=== PATIENT | female | born 1985 | race Hispanic/Latino ===

== ENCOUNTER 2023-03-06 00:59 | Emergency (ER) | payer OTHER ==
--- NOTE | 2023-03-06 02:09 | ER ---
Nurse's Notes [facility] Name: Delmy Bass Age: 37 yrs Sex: Female : 1985 Arrival Date: 03/06/2023 Time: 00:59 Bed 7 Private MD: Diagnosis: Pain in left leg Presentation: 03/06 01:08 Chief complaint: Patient states: My left leg has been hurting since this morning. When kd3 i got up this morning i started getting sharp pains in my calf and some swelling. I have had a DVT before. As far as i know i did not injure it. Coronavirus screen: Vaccine status: Patient reports being unvaccinated. Ebola Screen: No symptoms or risks identified at this time. Initial Sepsis Screen: Does the patient meet any 2 criteria? No. Patient's initial sepsis screen is negative. Does the patient have a suspected source of infection? No. Patient's initial sepsis screen is negative. Risk Assessment: Do you want to hurt yourself or someone else? Patient reports no desire to harm self or others. Onset of symptoms was March 06, 2023. 01:08 Method Of Arrival: Ambulatory kd3 01:08 Acuity: TOO 3 kd3 Triage Assessment: 01:10 General: Appears uncomfortable, Behavior is calm, cooperative. Pain: Complains of pain kd3 in left leg. Neuro: Level of Consciousness is awake, alert, obeys commands, Oriented to person, place, time, situation. 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 - Social history:: Smoking status: Patient denies any tobacco usage or history of. Screenin:23 [facility] ED Fall Risk Assessment (Adult) History of falling in the last 3 months, bp including since admission No falls in past 3 months (0 pts). Abuse screen: Denies threats or abuse. Denies injuries from another. Nutritional screening: No deficits noted. Tuberculosis screening: No symptoms or risk factors identified. Assessment: :23 General: SEE TRIAGE NOTE. bp Vital Signs: 01:08 Weight 124.74 kg; Height 5 ft. 8 in. ; kd3 01:16 BP 181 / 85; Pulse 79; Resp 16; Temp 98.1; Pulse Ox 100% ; bp 02:12 BP 162 / 81; Pulse 72; Resp 17; Temp 98; Pulse Ox 100% on R/A; rv 01:08 Body Mass Index 41.81 (124.74 kg, 172.72 cm) kd3 Fan Coma Score: 02:12 Eye Response: spontaneous(4). Motor Response: obeys commands(6). Verbal Response: rv oriented(5). Total: 15. ED Course: 01:02 Patient arrived in ED. mr 01:02 Ruthie Spangler FNP-C is PHCP. kb 01:02 Bob Mehta MD is Attending Physician. kb 01:10 Triage completed. kd3 01:10 Arm band placed on right wrist. kd3 01:12 Jimbo Campbell, RN is Primary Nurse. bp 01:23 Patient has correct armband on for positive identification. Bed in low position. Call bp light in reach. Side rails up X2. 01:34 US Extremity Venous Unilateral Ltd In Process Unspecified. EDMS 01:48 No provider procedures requiring assistance completed. rv 02:13 Provided Education on: dvt. rv 02:14 Patient did not have IV access during this emergency room visit. rv Administered Medications: No medications were administered Medication: 01:23 VIS not applicable for this client. bp Outcome: 02:08 Discharge ordered by . kb 02:14 Discharged to home ambulatory, rv 02:14 Condition: good 02:14 Discharge instructions given to patient, Instructed on discharge instructions, follow up and referral plans. medication usage, Demonstrated understanding of instructions, follow-up care, medications, Prescriptions given X 2, 02:32 Patient left the ED. bp Signatures: Dispatcher [employer] EDMS Ruthie Spangler FNP-C COMPUTER TEACHER-Ckb Nidia De La Paz, Reg Reg mr Jimbo Campbell, RN RN bp Monty Perdue, JONAH RN rv Kimberly Calixto RN RN kd3 Corrections: (The following items were deleted from the chart) 01:11 01:08 Chief complaint: Patient states: My left leg has been hurting since this morning. kd3 When i got up this morning i started getting sharp pains in my calf and some swelling. I have had a DVT before. kd3 02:15 02:14 Discharge instructions given to patient, Instructed on discharge instructions, rv follow up and referral plans. Demonstrated understanding of instructions, follow-up care, rv
--- NOTE | 2023-03-06 02:09 | EDPHYS ---
Physician Documentation [facility] Name: Delmy Bass Age: 37 yrs Sex: Female : 1985 Arrival Date: 03/06/2023 Time: 00:59 Bed 7 Private MD: ED Physician Bob Mehta HPI: 03/06 01:33 This 37 yrs old Female presents to ER via Ambulatory with complaints of Leg kb Pain. 01:33 The patient presents with pain, that is acute, swelling. The complaints affect the left kb leg. Context: The problem was sustained at home, resulted from an unknown cause, the patient can fully bear weight, the patient is not able to ambulate, Problem is a result from a previous injury: No. Onset: The symptoms/episode began/occurred this morning. Modifying factors: The symptoms are alleviated by nothing. the symptoms are aggravated by nothing. Associated signs and symptoms: Pertinent positives: swelling, Pertinent negatives calf tenderness, fever, nausea, numbness, rash, tingling, vomiting, warmth, weakness. Treatment prior to arrival includes: no previous treatment. Severity of symptoms: At their worst the symptoms were moderate, in the emergency department the symptoms are unchanged. The patient has not experienced similar symptoms in the past. The patient has not recently seen a physician. 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 - Social history:: Smoking status: Patient denies any tobacco usage or history of. ROS: 01:32 Constitutional: Negative for fever, chills, and weight loss, kb 01:32 MS/extremity: Positive for tightness in thigh and intermittent sharp pain that shoots up leg. , 01:32 All other systems are negative, Exam: 01:32 Constitutional: This is a well developed, well nourished patient who is awake, alert, kb and in no acute distress. Head/Face: Normocephalic, atraumatic. ENT: Moist Mucous membranes Cardiovascular: Regular rate Respiratory: Respirations even and unlabored. No increased work of breathing. Talking in full sentences Skin: Warm, dry with normal turgor. Normal color. Neuro: Awake and alert, GCS 15, oriented to person, place, time, and situation. Moves all extremities. Normal gait. 01:32 Musculoskeletal/extremity: Extremities: grossly normal except: noted in the left leg: pain, swelling, ROM: intact in all extremities, Circulation is intact in all extremities. Sensation intact. Weight bearing: able to fully bear weight, Vital Signs: 01:08 Weight 124.74 kg; Height 5 ft. 8 in. ; kd3 01:16 BP 181 / 85; Pulse 79; Resp 16; Temp 98.1; Pulse Ox 100% ; bp 02:12 BP 162 / 81; Pulse 72; Resp 17; Temp 98; Pulse Ox 100% on R/A; rv 01:08 Body Mass Index 41.81 (124.74 kg, 172.72 cm) kd3 Turner Coma Score: 02:12 Eye Response: spontaneous(4). Motor Response: obeys commands(6). Verbal Response: rv oriented(5). Total: 15. MDM: 01:03 Patient medically screened. kb 01:32 Differential diagnosis: contusion, tendonitis, dvt. Data reviewed: vital signs, nurses kb notes. Counseling: I had a detailed discussion with the patient and/or guardian regarding the historical points, exam findings, and any diagnostic results supporting the discharge/admit diagnosis, radiology results, the need for outpatient follow up, a family practitioner, to return to the emergency department if symptoms worsen or persist or if there are any questions or concerns that arise at home. 03/06 01:04 Order name: US Extremity Venous Unilateral Ltd kb Administered Medications: No medications were administered Disposition Summary: 03/06/23 02:08 Discharge Ordered Notes: Location: Home kb Condition: Stable kb Diagnosis - Pain in left leg kb Followup: kb - With: Emergency Department - When: As needed - Reason: Worsening of condition Followup: kb - With: Private Physician - When: 2 - 3 days - Reason: Recheck today's complaints, Continuance of care, Re-evaluation by your physician Discharge Instructions: - Discharge Summary Sheet kb - Musculoskeletal Pain kb Forms: - Medication Reconciliation Form kb - Thank You Letter kb - Antibiotic Education kb - Prescription Opioid Use kb - Patient Portal Instructions kb - Leadership Thank You Letter kb Prescriptions: - Ibuprofen 800 mg Oral Tablet - take 1 tablet ORAL route every 8 hours As needed take with food; 30 tablet; kb Refills: 0, Product Selection Permitted - orphenadrine citrate 100 mg Oral Tablet Sustained Release - take 1 tablet ORAL route 2 times per day As needed; 20 tablet; Refills: 0, kb Product Selection Permitted Signatures: Dispatcher [employer] Ruthie Tang, Kimberly Benson, RN RN kd3
[2023-03-06 03:01] VITALS: O2SAT 100
[2023-03-06 03:03] VITALS: BP 162/81; TEMP 98
--- OUTSIDE RECORDS SUMMARY | 2023-03-06 07:24 | XMS REPORT | Continuity of Care Document ---
:[address] [facility] t Address [address] [facility] [address] [place] [id number] Care Team Providers Name Role Phone GILL WHYTE Primary Care Physician Unavailable EDDOC, GENERIC FOR EDM Attending Clinician Unavailable Alfred Burris Attending Clinician Unavailable Valentine Del Rio MD Attending Clinician Edel Genao Attending Clinician VALENTINE DEL RIO Attending Clinician Unavailable Doctor Unassigned, [place] Attending Clinician Unavailable RUSS BELTRE Attending Clinician Unavailable Aliyah Navarro Attending Clinician Unavailable LORENE SCHILLING Attending Clinician Unavailable KHUSHBU MCCOLLUM M.D. Attending Clinician Unavailable ALFRED RODGERS M.D. Attending Clinician Unavailable Gill Whyte Admitting Clinician Unavailable Payers Payer Name Policy Type Policy Number Effective Date Expiration Date S ource Problems Condition Condition Condition Status Onset Resolution Last Treating Co mments Source Name Details Category Date Date Treatment Clinician Date History of History of Problem Resolve [facility] Thyroid Thyroid d [facility] disease disease ans Acute deep Acute deep Problem Active U T vein vein Physici thrombosis thrombosis an s (DVT) of (DVT) of popliteal popliteal vein of vein of left lower left lower extremity extremity Fracture Fracture Problem Active UT of 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 ans of left of left ankle ankle No known No known Disease Unive rs active active ity of problems problems [facility] Allergies, Adverse Reactions, Alerts Allergy Allergy Status Severity Reaction(s) Onset Inactive Treating Comm ents Source Name Type Date Date Clinician No Known DA Active U 2016-06 [facility] Allergie 07-13 Clear s 00:00: [place] 00 [facility] No Known DA Active U 2016-06 [facility] Allergie 07-13 [place] s 00:00: d 00 [facility] NO KNOWN Drug Active Univers ALLERGIE Class ity of S [facility] Family History Family Member Diagnosis Comments Start Date Stop Date Source Brother Family history of deep [facility] venous thrombosis Social History Social Habit Start Date Stop Date Quantity Comments Source Sexual orientation Method [facility] Gender identity [facility] Exposure to Not sure [facility]-CoV-2 (event) [facility] Tobacco use and 2021-06-13 2021-06-13 Never used Universit y of exposure 00:00:00 00:00:00 [facility] Sex Assigned At [birth year] [facility] 00:00:00 00:00:00 Smoking Status Start Date Stop Date Source Tobacco smoking consumption [facility] unknown Never smoker [facility] Medications Ordered Filled Start Stop Current Ordering Indication Dosage Frequency Signature Comments Components Source Medication Medication Date Date Medication? Clinician (SIG) Name Name benzonatate 2020-06 Yes [id number] 200mg Take 2 Univers 100 mg 2-28 capsules ity of capsule 00:00: by mouth 2 [place] (two[place] Medical times [place] daily as needed for Cough. Xarelto 20 Xarelto 20 2016-06 Yes ALFRED Take 1 tab UT MG Oral MG Oral 1-10 LI-SKYLER po daily. P hysici Tablet Tablet 00:00: BEN MDoriDDori ans 00 Immunizations Ordered Filled Immunization Date Status Comments Sourc e Immunization Name Name FLUCELVAX QUAD PF 2019-04-[address] [facility] FLUCELVAX QUAD PF 2019-04-[address] [facility] Hospital FLUCELVAX QUAD PF 2018-02-[address] 00:00:00 Hospital FLUCELVAX QUAD PF 2018-02-[address] 00:00:00 Hospital FLUCELVAX QUAD PF Unknown Completed [facility] FLUCELVAX QUAD PF Unknown Completed [facility] Vital Signs Vital Name Observation Time Observation Value Comments Source Systolic blood 2021-06-14 00:55:00 134 mm[Hg] Univer sity [facility] Diastolic blood 2021-06-14 00:55:00 84 mm[Hg] Unive [facility] [place] Heart rate 2021-06-14 00:55:00 84 /min [facility] Body temperature 2021-06-14 00:55:00 37.11 Arcelia [facility] Respiratory rate 2021-06-14 00:55:00 18 /min [facility] Body height 2021-06-14 00:55:00 172.7 cm [facility] Body weight 2021-06-14 00:55:00 126.78 kg [facility] BMI 2021-06-14 00:55:00 42.50 kg/m2 [facility] Oxygen saturation in 2021-06-14 00:55:00 98 /min [facility] blood by [facility] Pulse oximetry Branch BP Systolic 2017-04-26 10:11:00 140 mm[Hg] [facility] BP Diastolic 2017-04-26 10:11:00 89 mm[Hg] [facility] Heart Rate 2017-04-26 10:11:00 97 /min [facility] Procedures Procedure Date / Time Performing Clinician Source Performed NO SHOW OR MISSED 2021-06-14 00:45:39 Doctor Unassigned, [facility] APPOINTMENT POLICY [facility] ACKNOWLEDGEMENT CONSENT/REFUSAL FOR 2021-06-14 00:45:06 Doctor Unassigned, [facility] DIAGNOSIS AND TREATMENT [facility] ASSIGNMENT OF BENEFITS 2021-06-14 00:44:53 Doctor Unassigned, [facility] [U] XRAY ANKLE MIN 3 S 2017-06-13 00:00:00 [facility] LEFT [id number] [U] XRAY ANKLE MIN 3 [facility] 2017-05-21 00:00:00 [facility] LEFT [id number] [LH] Antithrombin III 2017-04-26 00:00:00 [facility] Functional Assay [LH] Factor V Leiden 2017-04-26 00:00:00 [facility] [LH] Protein C Functional 2017-04-26 00:00:00 [facility] [LH] Protein S Functional 2017-04-26 00:00:00 [facility] [LH] Von Willebrand 2017-04-26 00:00:00 [facility] Disease Panel [Q] COMPREHENSIVE 2017-04-26 00:00:00 [facility] METABOLIC PANEL W/eGFR (REFL) [QLH] CBC (INCLUDES 2017-04-26 00:00:00 [facility] DIFF/PLT) [QLH] Lupus Anticoagulant 2017-04-26 00:00:00 [facility] Panel [QLH] PARTIAL 2017-04-26 00:00:00 [facility] THROMBOPLASTIN TIME, ACTIVATED [QLH] PROTHROMBIN (FACTOR 2017-04-26 00:00:00 [facility] II) [id number]>A MUTATION ANALYSIS [QLH] PROTHROMBIN W/INR + 2017-04-26 00:00:00 [facility] PARTIAL THROMBOPLASTIN TIMES Plan of Care Planned Activity Planned Date Details Comments Source Future Scheduled 2023-02-24 [facility] Test 02:39:24 (#1) [code = COVID-19 VACCINE (#1)] Future Scheduled 2023-02-24 [facility] Test 02:39:24 malignant neoplasm of cervix (procedure) [code = 810221203] Future Scheduled 2023-02-24 INFLUENZA VACCINE [facility] Test 02:39:24 (#1) [code = INFLUENZA VACCINE (#1)] Future Scheduled 2023-02-24 COVID-19 [facility]INE [facility] Test 02:39:24 (#1) [code = COVID-19 VACCINE (#1)] Future Scheduled 2023-02-24 [facility] Test 02:39:24 malignant neoplasm of cervix (procedure) [code = 701713771] Future Scheduled 2023-02-24 [facility]INE [facility] 02:39:24 (#1) [code = INFLUENZA VACCINE (#1)] Future Scheduled 2022-06-10 COVID-19 [facility]INE [facility] Test 03:07:19 (#1) [code = COVID-19 VACCINE (#1)] Future Scheduled 2022-06-10 [facility] Test 03:07:19 malignant neoplasm of cervix (procedure) [code = 663971206] Future Scheduled 2022-06-10 [facility] Test 03:07: [code = INFLUENZA VACCINE] Encounters Start End Encounter Admission Attending Care Care Encounter Source Date/Time Date/Time Type Type Clinicians Facility Department ID 2023-03-05 Inpatient EM EDDOC, HCAC[facility] AERS [id number] [facility] 23:55:00 GENERIC 58 [facility] 2022-07-26 2022-07-26 Emergency EM Burris, [facility] AERS [id number] [facility] 12:19:00 12:37:00 Alfred 61 [facility] 2021-06-13 2021-06-13 Urgent Valentine Del Rio [facility] [id number] Univers 19:00:00 19:13:05 Care [facility] [id number] ity [facility] [id number] Trevin as LESVIA?BLEA [id number] [address] MEDICAL OFFICE BUILDING 2021-06-13 2021-06-13 Outpatient R FADY [facility] [id number] Univers 19:00:00 19:13:05 VALENTINE ity [facility] 2021-06-13 2021-06-13 Orders Doctor RUSS [id number] Univers 00:00:00 00:00:00 Only Unassigned, JOSE [id number] ity of [place] [facility] [id number] Trevin as [id number] [address] 2021-03-19 2021-03-19 Emergency E RUSS BELTRE [address] [facility] 14:32:00 19:26:00 2020-06-02 2020-06-02 Outpatient AFIA Navarro [id number] [facility] 13:51:00 13:51:00 Aliyah Borrero 2020-04-20 2020-04-20 Emergency E RICARDO [place]ILL[place] [address] [id number] [facility] 12:05:00 16:15:00 LORENE 2019-05-20 2019-05-20 Emergency E MHSE MHSE [id number] MH 08:22:00 08:22:00 [facility] 2019-04-23 2019-04-23 Outpatient Swords, SWOBGYN SWOBGYN [id number] 08:52:00 08:52:[address] OBGYN 2018-08-21 2018-08-21 Outpatient Swords, SWOBGYN SWOBGYN [id number] [facility] 09:53:00 09:53:[address] OBGYN 2018-07-23 2018-07-23 Outpatient Swords, SWOBGYN SWOBGYN [id number] [facility] 08:52:00 08:52:[address] OBGYN 2018-03-07 2018-03-07 Outpatient Swords, SWOBGYN SWOBGYN [id number] [facility] 11:40:00 11:40:[address] OBGYN 2018-03-07 2018-03-07 Outpatient Swords, SWOBGYN SWOBGYN [id number] [facility] 09:46:00 09:46:[address] OBGYN 2017-07-26 2017-07-26 [facility] Orthopedics [id number] [place] 10:45:00 10:45:00 t; sincere RÍOS Malone Jadiel Childress M.D. 2017-07-16 2017-07-16 Outpatient Swords, SWOBGYN SWOBGYN [id number] [facility] 09:20:00 09:20:[address] OBGYN 2017-07-12 2017-07-12 [facility] UTP [id number] [place] 15:15:00 15:15:00 t; Miles RÍOS M.D. ans TAGGART, M.D. 2017-06-14 2017-06-14 Fred [facility] Orthopedics [id number] [place] 15:45:00 15:45:00 t; KHUSHBU [facility] Jadiel Childress M.D. 2017-05-30 2017-05-30 [facility] Orthopedics [id number] [place] 15:30:00 15:30:00 t; [facility] ANDREW, M.D. M.D. 2017-05-22 2017-05-22 [id number] [place] 10:45:00 10:45:00 t; KHUSHBU [facility] Jadiel Childress M.D. 2017-04-26 2017-04-26 [facility] [id number] [place] 10:15:00 10:15:00 t; TERA CONTRERAS [facility] ALFRED Cummings ans ANDREW, M.D. M.D. 2017-04-24 2017-04-24 [facility] 36 [id number] [place] 11:00:00 11:00:00 t; KHUSHBU [facility] Jadiel Small M.D. Results Test Description Test Time Test Comments Results Result [facility] e Comments [U] XRAY ANKLE MIN 2017-06-14 Images [facility] 3 VWS LEFT [id number] 15:25:00 acquired, not reported on this accession number. [U] XRAY ANKLE MIN 2017-05-22 [facility] 3 VWS LEFT [id number] 10:56:00 acquired, not reported on this accession number. [QLH] CMP W/EGFR 2017-04-26 14:08:01 Test Item Value Reference Range Interpretation Comme nts Sodium Level (test code 139 {mEq/l} 135-145 = Sodium Level) Potassium Level (test 3.8 {mEq/l} 3.5-5.1 code = Potassium Level) Chloride Level (test 105 {mEq/l} 95-109 code = Chloride Level) Carbon Dioxide (test 25 {mEq/l} 24-32 code = Carbon Dioxide) AGAP (test code = AGAP) 12.8 {mEq/l} 10.0-20.0 Glucose Lvl (test code = 104 mg/dl 70-99 Dexter lt reference range values Glucose Lvl) reflect the cli nical guidelinesof th e [place] Diabetes Associ ation. Creatinine Lvl (test 0.70 mg/dl 0.50-1.40 code = Creatinine Lvl) Blood Urea Nitrogen 14 mg/dl 7-22 (test code = Blood Urea Nitrogen) BUN/Creatinine Ratio 20 6-25 (test code = BUN/Creatinine Ratio) Total Protein (test code 8.1 g/dl 6.4-8.4 = 64364-1) Albumin Lvl; Below Low 3.4 g/dl 3.5-5.0 Threshold (test code = 1751-7) Globulin (test code = 4.7 g/dl 2.7-4.2 Globulin) A/G Ratio (test code = 0.7 0.7-1.6 A/G Ratio) Calcium Level Total 9.6 mg/dl 8.5-10.5 (test code = Calcium Level Total) ALT (test code = 1742-6) 48 u/l 0-65 AST (test code = 1916-6) 35 u/l 0-37 Bili Total (test code = 0.4 mg/dl 0.2-1.3 30369-5) Alk Phos (test code = 57 u/l 39-136 1783-0) eGFR (test code = eGFR) 114 {ML/MIN/1.7} The eGFR is calculated using the CKD-EPI formula . In most young, healthyindividu als the eGFR will be >90 mL/min/1 .73m2. The eGFR declines with a ge. AneGFR of 60-89 may be no rmal in some populations, pa rticularly the elderly, forwho m the CKD-EPI formula has not been extensively validated. Use of the eGFR isnot recommended in the following populations:Ind ividuals with unstable creati nine concentrations, including patient s and those with serious co-morb id conditions.Oriana ents with extremes in mus tevin mass or diet.The data a lady are obtained from the Nation al Kidney Disease Education Progr am(NKDEP) which additionally re commends that when the eGFR i s used in patientswith ex tremes of body mass index for purposes of drug dosing, the eGF R shouldbe multiplied by t he estimated BMI. [facility]] CBC (INCLUDES DIFF/PLT)2017-04-26 13:20:01 Test Item Value Reference Range Interpretation Comments WBC (test code = WBC) 6.8 {K/CMM} 3.7-10.4 RBC (test code = RBC) 4.99 {M/CMM} 4.20-5.40 Hgb (test code = 57646-1) 12.0 g/dl 12.0-16.0 Hct (test code = 4544-3) 37.7 % 36.0-48.0 MCV (test code = MCV) 75.5 fL 80.0-98.0 MCH (test code = MCH) 24.0 pg 27.0-31.0 MCHC (test code = MCHC) 31.8 g/dl 32.0-36.0 RDW (test code = RDW) 15.8 % 11.5-14.5 Platelet (test code = 777-3) 412 {K/CMM} 133-450 Mean Platelet Volume (test code 8.0 fL 7.4-10.4 = Mean Platelet Volume) [facility]] [id number] 13:20:01 Test Item Value Reference Range Interpretation Comments Segmented Neutrophils (test code 65.8 % 45.0-75.0 = 42740-9) Monocytes # (test code = 31400-5) 0.4 {K/CMM} 0.0-0.8 Lymphocytes (test code = 22.9 % 20.0-40.0 Lymphocytes) Eosinophils # (test code = 0.3 {K/CMM} 0.0-0.5 86966-7) Basophils # (test code = 89804-8) 0.1 {K/CMM} 0.0-0.2 Segs-Bands # (test code = 4.5 {K/CMM} 1.5-8.1 44205-5) Lymphocytes # (test code = 1.6 {K/CMM} 1.0-5.5 51989-9) Microcyte (test code = Microcyte) 1+ None Seen A [facility][] Antithrombin III Functional [id number] 13:20:01 Test Item Value Reference Range Interpretation Comments Antithrombin III Functional Assay (test 100 % 77-140 code = Antithrombin III Functional Assay) [facility]] PROTHROMBIN W/INR + PARTIAL THROMBOPLASTIN [id number] 13:20:01 Test Item Value Reference Range Interpretation Comments PT (test code = PT) 24.5 {sec} 12.0-14.7 International 2.18 0.85-1.17 RECOMMENDED RA NGES Normalization Ratio FOR PROT MAGDA INR: (test code = 2.0-3.0 for mos t International medical and patel rgical Normalization Ratio) thrombo embolic states. 2.5-3.5 for artificial hear t valves and recu rrent embolism.INR SH OULD BE USED ONLY FO R PATIENTS ON STA BLE ANTICOAGULANT THERAPY. Partial Thromboplastin 42.4 {sec} 22.9-35.8 Hepar in Therapeutic Time (test code = Range: 57 - 92 Partial Thromboplastin Secon ds Time) [facility][] Von Willebrand Disease [id number] 13:20:01 Test Item Value Reference Range Interpretation Comments von Willebrand Factor 147 % 45-165 Assay (test code = von Willebrand Factor Assay) Factor VIII Assay (test 94 % 50-242 code = Factor VIII Assay) Von Willebrand Factor 140 % 45-140 Assay (test code = Von Willebrand Factor Assay) Von Willebrand Panel SEE NOTES von Abelardo lebrand panel Interpretation (test shows n o decrease in code = Von Willebrand any co mponents Panel Interpretation) (Facto r VIII, vWFantigen and functional). Impression: no evidence of von Willebrand disease(except for post-infusion l evel in patients wit h known disease). CPT: 15550 [facility][] Protein C [id number] 13:20:01 Test Item Value Reference Range Interpretation Comments Protein C Functional (test code = 170 % 72-147 Protein C Functional) [facility] Protein S [id number] 13:20:01 Test Item Value Reference Range Interpretation Comments Protein S Functional (test code = 142 % 54-137 Protein S Functional) [facility]] Lupus Anticoagulant [id number] 13:20:01 Test Item Value Reference Interpretation Comments Range dRVV (test code = 2.47 <=1.20 dRVV) dRVV Mixe Ratio 1.97 <=1.20 (test code = dRVV Mixe Ratio) Hexagonal See Lup Phospholipid Interp Neutralization (test code = Hexagonal Phospholipid Neutralization) Lup Interp (test SEE NOTES The DRVV sc reen for lupus code = Lup Interp) anticoagu lant is abnormal; however, the hexagonalphosph olipid neutralization (HPN) test is only borderl ine positive. Clinicalcorrela tion is recommended as transiently positive and fa lse positive result smay be observed and th maurice tests may be invalid for patients on anticoagulantth erapy. If clinically karo cated, additional test ing to include repeat DRVV andHPN tests at a clin ically appropriate int erval, factor assays i f appropriate,and anticardiolipin antibody assays is recommended.Int [facility].Electr onic Signature Joe Armijo MD 04/29/17 2:48 P M [facility][] Factor V [id number] 13:20:01 Test Item Value Reference Range Interpretation Comments Factor V Leiden PCR Negative (test code = Factor V Leiden PCR) Factor V Leiden SEE NOTES FACTOR V LEI DEN: Interpretation (test Negativ e code = Factor V INTERPRETATI ON: Leiden Molecular sanket sis for Interpretation) the Factor V Leiden, R506Q mutation was negative. Other causes of activated pr otein C resistance and hereditary form s of venousthrombosi s are not ruled out. Final diagnosis requi res correlation wit h clinical histor y and other pertinent laboratory find ings. Where appropria te, medical consult ation and/or genetic counseling shou ld be offered to info and explain the ris k implications an d genetic implica tions of these test resu lts. ASSAY LIMITATIO NS: The assay uses theFDA-cleared Jessica Factor V Leiden IVD(Poymerase c shailesh reaction/FRETde tection) kit, Jessica Klangoo A Pure LC Instrument a nd the Jessica LightCycl er 1.2Instrument. A 222-bp fragment of Fac tor V gene (FV) conta ining the Factor VLei den sequence is amp lified in the assay. T he assay is designed to detect theG 1691A muta tion only. Other cau ses of activated prote in C resistance andhereditary f orms of venous thrombos is are not ruled out. However,the meltingcurve an alysis may implicate t he presence of pos sible rare mutations atpositions 168 9, 1692 and 1696. (Furt her testing will be recommended in thereport). A m inimum detection level is 202 copies of Facto r V Leiden perreact ion. The level of agreem ent between the Fac tor V Leiden Kit and sequenceanalysi s was 99.4%. The test result must be interpr eted along with thep atient's clinical histor y and relevant labora tory data. This assa y has beenvalidated b y [facility]. [facility]] PROTHROMBIN (FACTOR II) 00073A>A MUTATION ANALYSIS 2017-04-26 13:20:01 Test Item Value Reference Range Interpretation Comments Factor II Mutation Negative by PCR (test code = Factor II Mutation by PCR) Factor II Mutation SEE NOTES FACTOR II PT: Negative Interpretation (test INTERPR ETATION: Molecular code = Factor II analysis fo r the Factor Mutation II (Prothrombin ) 66983C>A Interpretation) mutation was negative. Other causes of elevated prothrombin lev els and hereditary form s of venous thrombos is are not ruled out. Urszula l diagnosis requi res correlationwith clinical history and oth er pertinent labor atory findings. Wher e appropriate, me dical consultation an d genetic counseling shou ld be offered to info rm and explain the ris k implications an d genetic implications of these test results. ASSAYLIMITATION S: Theassay uses t he FDA-cleared [place] he Factor II (Prothrombin ) [id number] IVD (Polymerase chain reaction/FRET detection)kit, Jessica KlangooA Radio NEXT LC Instrumentand t he Jessica LightCycler 1.2 Instrument. A 1 65-bp fragment of Fac tor II gene(FII) conta ining the Factor II G2021 0A sequence is amp lified in the assay. The assay is designed to det ect the [id number] mutatio n only. Other causes of elevated prothrombin lev els and hereditary form s of venous thrombos is are not ruled out. Early kendell, the melting curve a nalysis may implicate t he presence of a p ossible rare mutation a t position 01821 (Furthert esting will be recomme nded in the report). A minimum detection level is 198 copies of Facto r II per reaction. The l evel of agreement betwe en the Factor II(Proth rombin) [id number] Kit and sequence analysis was 98 .9%. The test result mus t be interpreted stephanie ng with the patient's c linical history and revelantlaborat ory data. This assay has been validated by [facility]. [facility]] PARTIAL THROMBOPLASTIN TIME, [id number] 12:19:01 Test Item Value Reference Range Interpretation Comments PARTIAL THROMBOPLASTIN Cancel Reason: TIME, ACTIVATED (NO TEST System Cancel INDICATED) (test code = PARTIAL THROMBOPLASTIN TIME, ACTIVATED (NO TEST INDICATED)) [facility]
--- NOTE | 2023-03-06 13:47 | RAD REPORT ---
EXAM DESCRIPTION: Extremity Venous Uni Ltd CLINICAL HISTORY: 37 years, Female, PAIN COMPARISON: None. FINDINGS: Grayscale imaging as well as spectral and color Doppler interrogation of the deep venous s ystem of left lower extremity was performed with visualization from the common femoral veins to the p opliteal veins and posterior tibial vein. There is normal compressibility, augmentation and flow with no visualized thrombus. No focal fluid collection is identified. IMPRESSION: No left lower extremity DVT. Electronically signed by: Félix Ames DO 03/06/2023 1:42 AM CDT Due to temporary technical issues with the PACS/Fluency reporting system, reports are being signed by the in house radiologist without review as a courtesy to ensure prompt reporting. The interpreting r adiologist is fully responsible for the content of the report.
== END 2023-03-06 02:32 | disposition home or self-care (01) ==
LOC: ER 00:59
DX: M79.605 Pain in left leg (principal)
CPT/HCPCS: 93971